=== PATIENT | female | born 1995 | race Two or more races ===

== ENCOUNTER 2017-01-07 03:51 | Emergency (ER) | payer MEDICAID, OTHER, SELFPAY ==
[~2017-01-07] VITALS: Ht 157.5 cm; Wt 63.5 kg
[~2017-01-07 03:51] MED LIST: ATIVAN0.5 MG ORAL
[2017-01-07 04:16] VITALS: BP 119/70
[2017-01-07] MEDS ORDERED: Norco 5mg/325mg tab ORAL ONE (04:30)
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
[2017-01-07] MEDS ORDERED: HYDROCODON-ACE1 EA15 ORAL (05:36)
[2017-01-07 05:43] VITALS: BP 119/70
--- NOTE | 2017-01-07 08:56 | Diagnostic Imaging Report ---
Indication: Trauma with pain left knee Technique: XRAY KNEE COMP 4 OR MORE VIEWS LEFT Comparison: None. Findings: There is a depressed fracture of the lateral tibial plateau anteriorly. There is an effusion in the knee joint. The remainder the bones are intact. Impression: Depressed fracture of the lateral tibial plateau.
== END 2017-01-07 05:43 | disposition home or self-care (01) ==
LOC: EMR 05:14
DX: S82.142A Displaced bicondylar fracture of left tibia, initial encounter for closed fracture (principal); V43.52XA Car driver injured in collision with other type car in traffic accident, initial encounter; Y92.410 Unspecified street and highway as the place of occurrence of the external cause
CPT/HCPCS: 29530; 99283

== ENCOUNTER 2017-01-14 14:57 | Emergency (ER) | payer OTHER ==
[~2017-01-14] VITALS: Ht 157.5 cm; Wt 62.6 kg
[~2017-01-14 14:57] MED LIST changes: +HYDROCODON-ACE1 EA15 ORAL
[2017-01-14] MEDS ORDERED: Norco 7.5mg/325mg tab ORAL ONE (15:45)
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
[2017-01-14] MEDS ORDERED: ACETAMINOPHEN-1 EAC1 ORAL (15:49)
[2017-01-14 16:29] VITALS: BP 110/73
== END 2017-01-14 16:29 | disposition home or self-care (01) ==
LOC: EMR 15:38
DX: S82.142A Displaced bicondylar fracture of left tibia, initial encounter for closed fracture (principal); V49.9XXA Car occupant (driver) (passenger) injured in unspecified traffic accident, initial encounter; Y93.9 Activity, unspecified; Y92.9 Unspecified place or not applicable
CPT/HCPCS: 99283

== ENCOUNTER 2017-11-13 13:20 | Emergency (ER) | payer MEDICAID, OTHER ==
[~2017-11-13] VITALS: Ht 157.5 cm; Wt 79.4 kg
[~2017-11-13 13:20] MED LIST changes: +ACETAMINOPHEN-1 EAC1 ORAL
[2017-11-13 13:33] VITALS: BP 114/71
[2017-11-13 13:53] LABS: APPEARANCE,URINE SLIGHTLY CLOUDY; BILIRUBIN, URINE NEGATIVE (NEGATIVE); COLOR,URINE PALE YELLOW; GLUCOSE, URINE (UA) NEGATIVE (NEGATIVE); KETONES,URINE NEGATIVE (NEGATIVE); LEUKOCYTE ESTERASE ,URINE 1+ (NEGATIVE); NITRITE,URINE NEGATIVE (NEGATIVE); PH,URINE 8 (4.5-8.0); PROTEIN,URINE NEGATIVE (NEGATIVE); UROBILINOGEN,URINE 1 MG/DL (0.0-1.0)
[2017-11-13] MEDS ORDERED: Acetaminophen 500mg (ES) tab ORAL ONE (14:00)
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
[2017-11-13] MEDS ORDERED: TYLENOL EXTRA500 MG ORAL (15:57)
--- NOTE | 2017-11-13 16:37 | Diagnostic Imaging Report ---
Indication: Pelvic pain, negative hCG Technique: Transabdominal and transvaginal images Comparison: none Findings: Exam is somewhat limited due to patient body habitus. Uterus is retroverted, measures 5 cm length by 2.5 cm AP. It is not well visualized. Endometrium measures 7 mm thick. No definite myometrial abnormality. Small amount of free cul-de-sac fluid is noted. The right ovary measures 18 cm in length. Left ovary measures 2.8 cm in length. Shadowing echogenic foci in both ovaries probably represent calcifications. No adnexal mass demonstrated Impression: Limited exam, as described No gross acute abnormality Negative for adnexal mass Free cul-de-sac fluid, presumably physiologic
[2017-11-13 16:47] VITALS: BP 114/71
== END 2017-11-13 17:14 | disposition home or self-care (01) ==
LOC: EMR 14:01
DX: R10.2 Pelvic and perineal pain (principal)
CPT/HCPCS: 76856; 81003; 81025; 99284